=== PATIENT | female | born 1945 | race African-American/Black ===

== ENCOUNTER → 2016-10-01 | Outpatient (CLI) | payer OTHER ==
[~2016-10-01] MED LIST: AMOXICILLIN875 MG PO; ANTIVERT PO; ASPIRIN81 M1 PO; BACTRIM DS TABL1 TA2 PO; CIPRO PO; FISH OIL300 MG PO; IBUPROFEN800 MG PO; IMDUR30 MG PO; ISOSORBIDE MONO30 M1 PO; KCL PO; LAMISIL250 MG PO; LIPITOR PO; LIPITOR40 MG PO; LISINOPRIL PO; LISINOPRIL-HCTZ1 T14 PO; LUMIGAN2.5 ML OP; METOPROLOL SUCC25 MG PO; NICOTINE TRANSD14 MG EXT; NORVASC PO; NORVASC10 MG PO; PREMARIN0.3 MG PO; PYRIDIUM PO; TIMOPTIC2.5 ML OP; TOPROL XL PO
--- NOTE | ~2016-10-01 | BD1 ---
[facility] A Service of [facility] & [facility] RADIOLOGY TEXT RESULTS PATIENT: NIKO TUTTLE LOCATION: [facility] : 47 UNIT #: [id number] AGE: [address]: REYNALDO GONZALEZ SEX: F ORDER DR: [id number] [address] [address] [id number] O MR#: [id number] Acc #: [id number] NAME: NIKO TUTTLE : 1945 SEX: F STUDY DATE/TIME: 10/01/2016 11:28 UNIT: [facility] ROOM: STUDY DESCRIPTION: BD Dexa Bone Dens 1+ Site Attending Physician: Reynaldo Gonzalez M.D. Referring Physician: Reynaldo Gonzalez M.D. Ordering Physician: Lukas Marcum M.D. Primary Care Physician: Tyrone Brownlee Jr., M.D. MEDICAL IMAGING REPORT This report is preliminary unless electronic signature is present. EXAM DXA scan. DATE OF EXAM 10/01/2016 HISTORY Status post menopause with no hormone replacement therapy. Osteopenia. Hypertension with blood pressure medication for 15 years. Smoking history for 25 years. FINDINGS Bone mineral density in the lumbar spine from L1 through L4 was 1.047 g/cm2 which is 1.1 standard deviations below the mean when compared to the young adult reference population which is characteristic of osteopenia. This is 0.6 standard deviations below the mean when compared to the age-matched population. Bone mineral density in the left femoral neck was 0.948 g/cm2 which is 0.6 standard deviations below the mean when compared to the young adult reference population which is characteristic of osteopenia. This is 0.2 standard deviations below the mean when compared to the age-matched population. Bone mineral density in the right femoral neck was 0.938 g/cm2 which is 0.7 standard deviations below the mean when compared to the young adult reference population which is within the range of normal. This is 0.2 standard deviations below the mean when compared to the age-matched population. IMPRESSION Bone mineral density in the lumbar spine characteristic of osteopenia and within the hips bilaterally within the range of normal. Dictated by... [facility] A Service of [facility] RADIOLOGY TEXT RESULTS PATIENT: NIKO TUTTLE LOCATION: [facility] #: [id number] : 47 UNIT #: [id number] AGE: [address]: REYNALDO GONZALEZ SEX: F ORDER DR: El Cisneros M.D. THIS IS AN ELECTRONICALLY VERIFIED REPORT El Cisneros M.D. at 10/02/2016 3:38 PM JUANIS/giovanni TD: 10/01/2016 16:42 JOB #: [id number] MEDICAL IMAGING REPORT Page 1 of 1
== END | disposition home or self-care (01) ==
LOC: SRAD 11:08
DX: N95.9 Unspecified menopausal and perimenopausal disorder (principal)
CPT/HCPCS: 77080